=== PATIENT | male | born 1955 | race Caucasian/White ===

== ENCOUNTER 2022-03-19 13:34 | Emergency (ER) | payer MEDICARE, SELFPAY ==
[2022-03-19 13:39] VITALS: BP 161/90; PULSE 62; RESP 16; TEMP 36.8; O2SAT 96; BMI 24.3
[2022-03-19 13:48] VITALS: BP 157/91; PULSE 65; RESP 15; O2SAT 95
--- NOTE | 2022-03-19 13:50 | XR_ITS ---
WS: [id number] XR ankle RT min 3V* [id number] REASON FOR EXAM: ankle swelling FINDINGS: Transverse infra syndesmotic fracture of the distal right fibula with no significant displacement. The ankle joint spaces are relatively well-preserved. Old organized periosteal reaction along the medial aspect of the fibula at the syndesmotic level. XR/XR ankle RT min 3V* [id number] IMPRESSION: Acute fracture of the distal right fibula as above. Old syndesmotic injury.
--- NOTE | 2022-03-19 13:52 | ED_ITS ---
Documented by User: Brooke Dover MD 03/19/22 18:47 HPI - General Adult General: Chief complaint: Psychiatric Symptoms Stated complaint: HI Time Seen by Provider: 03/19/22 13:36 History of Present Illness: Patient is a 66-year-old male with no significant past medical presenting to the emergency room for concerns of homicidal ideation. Patient came in under court order for homicidal ideation. Patient was at a tire shop and cost over $4000 of damage. Law enforcement was called patient was brought to the emergency room. Patient verbalized statements of hurting law enforcement officers en route. Patient denies any suicidal ideation. Patient complains of right ankle swelling. Patient does not remember how long its been going on for. Patient denies any auditory or visual hallucination. Onset: earlier today Duration:ongoing Location:tire shop Severity:severe Associated symptoms: Deny chest pain, dyspnea, nausea, rash, palpitations or vomiting Review of Systems Const: Denies: fever(s) or chills Eyes: Denies: change in vision ENMT: Denies: mouth pain Card: Denies: chest pain or palpitations Resp: Denies: dyspnea or non-productive cough GI: Denies: abdominal pain, nausea, vomiting or diarrhea : Denies: dysuria Musc: Denies: extremity pain Skin/Breast: Denies: rash or new lesions Neuro: Denies: weakness in extremities Psych: Reports: homicidal ideation and other (Normal mood) Rolf/Lymph: Denies: easy bruising [facility] ED PFSH: Medical History No pertinent past medical history Social History Smoking and tobacco status: current every day smoker Alcohol intake: current Substance/Drug Use: never Physical Exam Const: COMMON NORMALS: alert HENMT: COMMON NORMALS: atraumatic HEAD & SCALP: atraumatic MOUTH: moist mucous membranes not abnormal Eye: COMMON NORMALS: EOMs intact bilaterally and conjunctivae normal CONJUNCTIVA: Yes conjunctivae normal Neck/C-Spine: COMMON NORMALS: full ROM and supple Resp: COMMON NORMALS: normal respiratory effort and clear to auscultation bilaterally AUSCULTATION: clear to auscultation bilaterally Cardio: COMMON NORMALS: regular rate RATE: regular rate GI: COMMON NORMALS: Soft to palpation and non-tender PALPATION: Yes Soft to palpation Extremity: COMMON NORMALS: full ROM Neuro: SENSORIUM/ORIENTATION: Yes alert MOTOR EXAM: No Abnormal motor strength present and Other motor observations present (no focal motor deficits) Psych: COMMON NORMALS: speech normal SPEECH: Yes normal speech MOOD & AFFECT: Yes euthymic mood Course Vital Signs: Vital signs: Vital Signs Temperature 98.8 F 03/20/22 15:38 Pulse Rate 59 L 03/20/22 15:38 Respiratory Rate 16 03/20/22 15:38 Blood Pressure 140/70 03/20/22 15:41 Pulse Oximetry 96 03/20/22 15:38 MDM - General Adult Medical Decision Making [66]yo patient w/ no known PMH presenting for statements of HI. HDS, exam within normal limit Thoughts are linear and organized, and the patient has no AH/VH, or SI. Patient is under court order for homocidal ideation Clinically the patient displays no overt toxidrome; they are well appearing, with low suspicion for toxic ingestion given history and exam. Symptoms unlikely 2/2 anemia, hypothyroidism, infection, or ICH. Workup: CBC, CMP, Lipase, salicylate/tylenol, serum ethanol, UDS, TSH/free T4, EKG, covid antigen, XR chest Lab findings: wnl X-ray showed no acute fibular fracture. Patient is placed in walking boot per Dr. Pressley who recommended orthopedic follow-up. I have given patient follow up with our case manager specialist to be seen by our outpatient by Dr. Pressley for R sided fibular fracture. Patient aware of a call from our case manager specialist to schedule for appointment(s) and verbalizes understanding of the importance of following up. [2:45pm] On reassessment, labs and workup wnl. Patient is hemodynamically stable with no acute medical complaints. Case discussed with psychiatric provider Dr. Bell at [facility] psych inpatient with recommendation for Xfer to nas psych Disposition: Xfer to nas psych Lab Data : 03/19/22 14:39 03/19/22 14:39 Radiology Impressions Ankle X-Ray 03/19/22 13:50 IMPRESSION: Acute fracture of the distal right fibula as above. Old syndesmotic injury. Chest X-Ray 03/19/22 14:26 IMPRESSION: No acute chest abnormality. 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 Laboratory Results WBC 4.6 10^3/uL (4.0-10.0) 03/19/22 14:39 RBC 3.99 10^6/uL (4.1-5.3) L 03/19/22 14:39 Hgb 12.5 g/dL (11.7-16.6) 03/19/22 14:39 Hct 37.2 % (42.0-52.0) L 03/19/22 14:39 MCV 93.2 fl (80-94) 03/19/22 14:39 MCH 31.3 pg (28.0-34.0) 03/19/22 14:39 MCHC 33.6 g/dL (30.0-36.0) 03/19/22 14:39 RDW 13.2 % (12.1-15.1) 03/19/22 14:39 Plt Count 222 10^3/cmm (130-400) 03/19/22 14:39 MPV 11.1 fL (7.4-10.4) H 03/19/22 14:39 Neut % (Auto) 65.4 % 03/19/22 14:39 Lymph % (Auto) 20.0 % 03/19/22 14:39 [place] % (Auto) 11.6 % 03/19/22 14:39 Eos % (Auto) 2.6 % 03/19/22 14:39 Baso % (Auto) 0.4 % 03/19/22 14:39 Neut # (Auto) 3.03 10^3/uL (1.8-7.7) 03/19/22 14:39 Lymph # (Auto) 0.9 10^3/uL (0.8-4.8) 03/19/22 14:39 [place] # (Auto) 0.5 10^3/uL (0.2-0.9) 03/19/22 14:39 Eos # (Auto) 0.1 10^3/uL (0.0-0.8) 03/19/22 14:39 Baso # (Auto) 0.0 10^3/uL (0.0-0.1) 03/19/22 14:39 Nucleated RBC % (auto) 0 % 03/19/22 14:39 Nucleated RBCs # 0.0 /100WBC 03/19/22 14:39 Sodium 135 mmol/L (136-145) L 03/19/22 14:39 Potassium 4.1 mmol/L (3.5-5.1) 03/19/22 14:39 Chloride 102 mmol/L (98-107) 03/19/22 14:39 Carbon Dioxide 21 mmol/L (22-29) L 03/19/22 14:39 Anion Gap 16.1 (5-19) 03/19/22 14:39 BUN 16 mg/dL (8-23) 03/19/22 14:39 Creatinine 0.5 mg/dL (0.7-1.2) L 03/19/22 14:39 GFR Calculation 166.4 mL/min (90-130) H 03/19/22 14:39 Glucose 87 mg/dL (65-115) 03/19/22 14:39 Calculated Osmolality 281 mOsm/kg (285-295) L 03/19/22 14:39 Calcium 8.8 mg/dL (8.5-10.5) 03/19/22 14:39 Total Bilirubin 0.3 mg/dL (0.15-1.2) 03/19/22 14:39 AST 48 U/L (0-40) H 03/19/22 14:39 ALT 36 U/L (0-41) 03/19/22 14:39 Alkaline Phosphatase 59 IU/L (40-130) 03/19/22 14:39 Total Protein 6.1 g/dL (6.6-8.7) L 03/19/22 14:39 Albumin 4.1 g/dL (3.5-5.2) 03/19/22 14:39 Globulin 2.0 g/dL (1.3-4.6) 03/19/22 14:39 Lipase 29 U/L (13-60) 03/19/22 14:39 Vitamin B12 641 pg/mL (232-1245) 03/19/22 18:40 Folate 8.3 ng/mL (4.5-32.2) 03/19/22 18:40 TSH 1.28 uIU/mL (0.27-4.20) 03/19/22 14:39 Free T4 1.30 ng/dL (0.82-1.77) 03/19/22 14:39 Salicylates < 0.3 mg/dL (3-10) L 03/19/22 14:39 Urine Opiates Screen Negative ng/mL (Negative) 03/19/22 14:28 Acetaminophen < 5.0 ug/mL (10-30) L 03/19/22 14:39 Ur Barbiturates Screen Negative ng/mL (Negative) 03/19/22 14:28 Ur Phencyclidine Scrn Negative ng/mL (Negative) 03/19/22 14:28 Ur Amphetamines Screen Negative ng/mL (Negative) 03/19/22 14:28 U Benzodiazepines Scrn Negative ng/mL (Negative) 03/19/22 14:28 Urine Cocaine Screen Negative ng/mL (Negative) 03/19/22 14:28 U Marijuana (THC) Screen Negative ng/mL (Negative) 03/19/22 14:28 Ethyl Alcohol < 10 mg/dL (0-10) 03/19/22 14:39 SARS-CoV-2 Ag (Rapid) Negative (Negative) 03/19/22 15:15 Imaging Data Other Imaging: Radiologist's impression: Launch?Image [address] [address] XRay Report Signed Patient: Kendrick Carson Unit #: [id number] : 1955 Age/Sex: 66 / M ADM Date: 03/19/22 Loc: ER Room/Bed: Attending Dr: Ordering Provider/Ordering MD: Boroke Dover MD Date of Service: 03/19/22 Procedure(s): XR ankle RT min 3V* [id number] Accession Number(s): [id number] Report Number: [id number] WS: [id number] XR ankle RT min 3V* [id number] REASON FOR EXAM: ankle swelling FINDINGS: Transverse infra syndesmotic fracture of the distal right fibula with no significant displacement. The ankle joint spaces are relatively well-preserved. Old organized periosteal reaction along the medial aspect of the fibula at the syndesmotic level. XR/XR ankle RT min 3V* [id number] IMPRESSION: Acute fracture of the distal right fibula as above. Old syndesmotic injury. ? ? Dictated By: Nish Umana Jr, MD Signed By: Nish Umana Jr, MD Signed Date/Time: 03/19/22 1411 DD/ 1407 Discharge Plan Discharge Patient Disposition: Transfer to ED Clinical Impression: Homicidal ideation, Ankle swelling, Closed fibular fracture Condition: Stable Prescriptions: No Action No Known Home Medications 0RF Coding Level of Care Code ED Worker'S Compensation Claims Examiner for Chg Fwd Exam Comprehensive Documented by User: Dawood Pickett DO 03/19/22 17:02 HPI - General Adult General: Chief complaint: Psychiatric Symptoms Stated complaint: HI Time Seen by Provider: 03/19/22 13:36 PFSH ED PFSH: Medical History No pertinent past medical history Social History Smoking and tobacco status: current every day smoker Alcohol intake: current Substance/Drug Use: never Course Vital Signs: Vital signs: Vital Signs Temperature 98.8 F 03/20/22 15:38 Pulse Rate 59 L 03/20/22 15:38 Respiratory Rate 16 03/20/22 15:38 Blood Pressure 140/70 03/20/22 15:41 Pulse Oximetry 96 03/20/22 15:38 MDM - General Adult Medical Decision Making [66]yo patient w/ no known PMH presenting for statements of HI. HDS, exam within normal limit Thoughts are linear and organized, and the patient has no AH/VH, or SI. Patient is under court order for homocidal ideation Clinically the patient displays no overt toxidrome; they are well appearing, with low suspicion for toxic ingestion given history and exam. Symptoms unlikely 2/2 anemia, hypothyroidism, infection, or ICH. Workup: CBC, CMP, Lipase, salicylate/tylenol, serum ethanol, UDS, TSH/free T4, EKG, covid antigen, XR chest Lab findings: wnl X-ray showed no acute fibular fracture. Patient is placed in walking boot per Dr. Pressley who recommended orthopedic follow-up. I have given patient follow up with our case manager specialist to be seen by our outpatient by Dr. Pressley for R sided fibular fracture. Patient aware of a call from our case manager specialist to schedule for appointment(s) and verbalizes understanding of the importance of following up. [2:45pm] On reassessment, labs and workup wnl. Patient is hemodynamically stable with no acute medical complaints. Case discussed with psychiatric provider Dr. Bell at [facility] psych inpatient with recommendation for Xfer to nas psych Disposition: Xfer to [facility] psych Chart inadvertently added to my list I did not participate in care Dr. Dover provided all of the care for this patient. Due to a [email or web address] EMR system and unable to remove my name from the chart and had to sign Lab Data : 03/19/22 14:39 03/19/22 14:39 Radiology Impressions Ankle X-Ray 03/19/22 13:50 IMPRESSION: Acute fracture of the distal right fibula as above. Old syndesmotic injury. Chest X-Ray 03/19/22 14:26 IMPRESSION: No acute chest abnormality. 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 Laboratory Results WBC 4.6 10^3/uL (4.0-10.0) 03/19/22 14:39 RBC 3.99 10^6/uL (4.1-5.3) L 03/19/22 14:39 Hgb 12.5 g/dL (11.7-16.6) 03/19/22 14:39 Hct 37.2 % (42.0-52.0) L 03/19/22 14:39 MCV 93.2 fl (80-94) 03/19/22 14:39 MCH 31.3 pg (28.0-34.0) 03/19/22 14:39 MCHC 33.6 g/dL (30.0-36.0) 03/19/22 14:39 RDW 13.2 % (12.1-15.1) 03/19/22 14:39 Plt Count 222 10^3/cmm (130-400) 03/19/22 14:39 MPV 11.1 fL (7.4-10.4) H 03/19/22 14:39 Neut % (Auto) 65.4 % 03/19/22 14:39 Lymph % (Auto) 20.0 % 03/19/22 14:39 [place] % (Auto) 11.6 % 03/19/22 14:39 Eos % (Auto) 2.6 % 03/19/22 14:39 Baso % (Auto) 0.4 % 03/19/22 14:39 Neut # (Auto) 3.03 10^3/uL (1.8-7.7) 03/19/22 14:39 Lymph # (Auto) 0.9 10^3/uL (0.8-4.8) 03/19/22 14:39 [place] # (Auto) 0.5 10^3/uL (0.2-0.9) 03/19/22 14:39 Eos # (Auto) 0.1 10^3/uL (0.0-0.8) 03/19/22 14:39 Baso # (Auto) 0.0 10^3/uL (0.0-0.1) 03/19/22 14:39 Nucleated RBC % (auto) 0 % 03/19/22 14:39 Nucleated RBCs # 0.0 /100WBC 03/19/22 14:39 Sodium 135 mmol/L (136-145) L 03/19/22 14:39 Potassium 4.1 mmol/L (3.5-5.1) 03/19/22 14:39 Chloride 102 mmol/L (98-107) 03/19/22 14:39 Carbon Dioxide 21 mmol/L (22-29) L 03/19/22 14:39 Anion Gap 16.1 (5-19) 03/19/22 14:39 BUN 16 mg/dL (8-23) 03/19/22 14:39 Creatinine 0.5 mg/dL (0.7-1.2) L 03/19/22 14:39 GFR Calculation 166.4 mL/min (90-130) H 03/19/22 14:39 Glucose 87 mg/dL (65-115) 03/19/22 14:39 Calculated Osmolality 281 mOsm/kg (285-295) L 03/19/22 14:39 Calcium 8.8 mg/dL (8.5-10.5) 03/19/22 14:39 Total Bilirubin 0.3 mg/dL (0.15-1.2) 03/19/22 14:39 AST 48 U/L (0-40) H 03/19/22 14:39 ALT 36 U/L (0-41) 03/19/22 14:39 Alkaline Phosphatase 59 IU/L (40-130) 03/19/22 14:39 Total Protein 6.1 g/dL (6.6-8.7) L 03/19/22 14:39 Albumin 4.1 g/dL (3.5-5.2) 03/19/22 14:39 Globulin 2.0 g/dL (1.3-4.6) 03/19/22 14:39 Lipase 29 U/L (13-60) 03/19/22 14:39 Vitamin B12 641 pg/mL (232-1245) 03/19/22 18:40 Folate 8.3 ng/mL (4.5-32.2) 03/19/22 18:40 TSH 1.28 uIU/mL (0.27-4.20) 03/19/22 14:39 Free T4 1.30 ng/dL (0.82-1.77) 03/19/22 14:39 Salicylates < 0.3 mg/dL (3-10) L 03/19/22 14:39 Urine Opiates Screen Negative ng/mL (Negative) 03/19/22 14:28 Acetaminophen < 5.0 ug/mL (10-30) L 03/19/22 14:39 Ur Barbiturates Screen Negative ng/mL (Negative) 03/19/22 14:28 Ur Phencyclidine Scrn Negative ng/mL (Negative) 03/19/22 14:28 Ur Amphetamines Screen Negative ng/mL (Negative) 03/19/22 14:28 U Benzodiazepines Scrn Negative ng/mL (Negative) 03/19/22 14:28 Urine Cocaine Screen Negative ng/mL (Negative) 03/19/22 14:28 U Marijuana (THC) Screen Negative ng/mL (Negative) 03/19/22 14:28 Ethyl Alcohol < 10 mg/dL (0-10) 03/19/22 14:39 SARS-CoV-2 Ag (Rapid) Negative (Negative) 03/19/22 15:15 Discharge Plan Discharge Patient Disposition: Transfer to ED Clinical Impression: Homicidal ideation, Ankle swelling, Closed fibular fracture Condition: Stable Prescriptions: No Action No Known Home Medications 0RF Coding Level of Care Code ED Worker'S Compensation Claims Examiner for Chg Fwd Exam Comprehensive Documented by User: Gideon King MD 03/20/22 22:13 HPI - General Adult General: Chief complaint: Psychiatric Symptoms Stated complaint: HI Time Seen by Provider: 03/19/22 13:36 PFS ED PFSH: Medical History No pertinent past medical history Social History Smoking and tobacco status: current every day smoker Alcohol intake: current Substance/Drug Use: never Course Vital Signs: Vital signs: Vital Signs Temperature 98.8 F 03/20/22 15:38 Pulse Rate 59 L 03/20/22 15:38 Respiratory Rate 16 03/20/22 15:38 Blood Pressure 140/70 03/20/22 15:41 Pulse Oximetry 96 03/20/22 15:38 MDM - General Adult Medical Decision Making [66]yo patient w/ no known PMH presenting for statements of HI. HDS, exam within normal limit Thoughts are linear and organized, and the patient has no AH/VH, or SI. Patient is under court order for homocidal ideation Clinically the patient displays no overt toxidrome; they are well appearing, with low suspicion for toxic ingestion given history and exam. Symptoms unlikely 2/2 anemia, hypothyroidism, infection, or ICH. Workup: CBC, CMP, Lipase, salicylate/tylenol, serum ethanol, UDS, TSH/free T4, EKG, covid antigen, XR chest Lab findings: wnl X-ray showed no acute fibular fracture. Patient is placed in walking boot per Dr. Pressley who recommended orthopedic follow-up. I have given patient follow up with our case manager specialist to be seen by our outpatient by Dr. Pressley for R sided fibular fracture. Patient aware of a call from our case manager specialist to schedule for appointment(s) and verbalizes understanding of the importance of following up. [2:45pm] On reassessment, labs and workup wnl. Patient is hemodynamically stable with no acute medical complaints. Case discussed with psychiatric provider Dr. Bell at [facility] psych inpatient with recommendation for Xfer to [facility] psych Disposition: Xfer to [facility] psych Chart inadvertently added to my list I did not participate in care Dr. Dover provided all of the care for this patient. Due to a [employer] EMR system and unable to remove my name from the chart and had to sign Patient presents here with court order hold for homicidal ideation he is excepted to [facility] medically cleared will transfer there. Lab Data : 03/19/22 14:39 03/19/22 14:39 Radiology Impressions Ankle X-Ray 03/19/22 13:50 IMPRESSION: Acute fracture of the distal right fibula as above. Old syndesmotic injury. Chest X-Ray 03/19/22 14:26
--- NOTE | 2022-03-19 14:26 | XR_ITS ---
WS: [id number] XR chest 1V portable [id number] REASON FOR EXAM: psych [facility] nowadays..... FINDINGS: The heart and mediastinum are within normal limits. There is calcified granulomatous disease in both hemithoraces. There are areas of increased lucency in the upper lung wetzel with some prominence of the interstitia l reticular markings in the lower lung weztel. The hemidiaphragms are flattened. No acute pulmonary parenchymal or pleural abnormality. Changes of degenerative spondylosis in the mid and lower thoracic spine with multiple biconcave compr ession deformities. XR/XR chest 1V portable [id number] IMPRESSION: No acute chest abnormality. 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
--- NOTE | 2022-03-19 14:26 | ECG_ITS ---
[facility] Test Date: 2022-03-19 Pat Name: Kendrick Carson Department: Room: Gender: Male Manager Agriculture: : 1955 Requested By: Brooke Dover Order Number: [id number] Stock MD: Richard Palacios M.D. Measurements Intervals [place] Rate: 51 P: 5 NV: 165 QRS: 55 QRSD: 82 T: 67 QT: 439 QTc: 407 Interpretive Statements SINUS BRADYCARDIA No previous ECG available for comparison Electronically Signed On 03-19-2022 20:28:38 CDT by Richard Palacios M.D. [id number]
[2022-03-19 14:57] VITALS: BP 157/91; PULSE 65; RESP 15; TEMP 36.8; O2SAT 95
[2022-03-19 14:58] LABS: Basophils % 0.4 %; Eosinophils # 0.1 10^3/uL (0.0-0.8); Eosinophils % 2.6 %; Hematocrit 37.2 % (42.0-52.0); Hemoglobin 12.5 g/dL (11.7-16.6); Lymphocytes # 0.9 10^3/uL (0.8-4.8); Mean Corpuscular HGB Conc 33.6 g/dL (30.0-36.0); Mean Corpuscular Hemoglobin 31.3 pg (28.0-34.0); Mean Corpuscular Volume 93.2 fl (80-94); Mean Platelet Volume 11.1 fL (7.4-10.4); Monocytes # 0.5 10^3/uL (0.2-0.9); Monocytes % 11.6 %; Neutrophils # 3.03 10^3/uL (1.8-7.7); Neutrophils % 65.4 %; Nucleated Red Blood Cells % 0 %; Platelet Count 222 10^3/cmm (130-400); Red Blood Count 3.99 10^6/uL (4.1-5.3); Red Cell Distribution Width 13.2 % (12.1-15.1); White Blood Count 4.6 10^3/uL (4.0-10.0)
[2022-03-19 15:24] LABS: Alanine Aminotransferase 36 U/L (0-41); Albumin Level 4.1 g/dL (3.5-5.2); Alkaline Phosphatase 59 IU/L (40-130); Aspartate Amino Transferase 48 U/L (0-40); Blood Urea Nitrogen 16 mg/dL (8-23); Calcium 8.8 mg/dL (8.5-10.5); Carbon Dioxide 21 mmol/L (22-29); Chloride 102 mmol/L (98-107); Glomerular Filtration Rate 166.4 mL/min (90-130); Glucose 87 mg/dL (65-115); Lipase 29 U/L (13-60); Osmolality Calculated 281 mOsm/kg (285-295); Sodium 135 mmol/L (136-145); Thyroid Stimulating Hormone 1.28 uIU/mL (0.27-4.20); Total Bilirubin 0.3 mg/dL (0.15-1.2); Total Protein 6.1 g/dL (6.6-8.7)
[2022-03-19 15:27] LABS: Acetaminophen < 5.0 ug/mL (10-30); Alcohol Level < 10 mg/dL (0-10); Anion Gap 16.1 (5-19); Creatinine Clr Calc Pharmacy 92.9589; Potassium 4.1 mmol/L (3.5-5.1); Salicylate < 0.3 mg/dL (3-10)
[2022-03-19 16:56] LABS: SARS Covid-2 Antigen Negative (Negative)
--- NOTE | 2022-03-19 17:34 | DCPLANNER ---
manager web was asked to find nas psych placement for patient. manager web called the following facilities: [facility] - patient is involuntary [facility] - faxed patients information at 5:30 [facility] - no beds [facility] - to [facility] - closed due to COVID [facility] - faxed information - no beds [facility] - need to call back [facility] - left voicemail at 3:15 [facility] - no beds [facility] - no beds [facility] - faxed information at 5:30
[2022-03-19 18:27] LABS: Amphetamines Screen Urine Negative (Negative); Barbiturates Screen Urine Negative (Negative); Benzodiazepines Screen Urine Negative (Negative); Cocaine Screen Urine Negative (Negative); Opiate Screen Urine Negative (Negative); PCP Screen Urine Negative (Negative); THC Screen Urine Negative (Negative)
[2022-03-19 19:39] LABS: Folate Level 8.3 ng/mL (4.5-32.2)
[2022-03-19 19:40] LABS: Vitamin B12 641 pg/mL (232-1245)
--- NOTE | 2022-03-19 22:22 | PC.NURSE ---
Dr Dover cancelled orders while waiting for security to arrive and assist with aggressive patient. Benadryl 50mg im, Haldol 5mg, and Ativan 1mg. Witness waste of medications by charge nurse- christian saravia rn.
[2022-03-20 06:00] VITALS: BP 169/78; PULSE 88; RESP 16; O2SAT 96
[2022-03-20 15:38] VITALS: PULSE 59; RESP 16; TEMP 37.1; O2SAT 96
[2022-03-20 15:41] VITALS: BP 140/70
[2022-03-20 22:35] VITALS: BP 168/87; PULSE 53; RESP 14; TEMP 36.8; O2SAT 95
--- NOTE | 2022-03-21 13:25 | DCPLANNER ---
Addendum entered by Orin Rodriguez 03/24/22 14:37: analytical manager was sent the following message from ortho regarding follow up appointment: Will contact pt after the 96 hours thank you Original Note: analytical manager had message to schedule follow up appointment for patient with ortho. analytical manager sent patients information to the front office staff at ortho. Patients information will be printed and reviewed. Clinic will call patient with appointment information.
[2022-03-22 15:53] LABS: RPR w(Moniotor) w/REFL Titer REACTIVE (NON-REACTIVE)
== END 2022-03-20 23:06 ==
PROVIDERS: Emergency Medicine; Emergency Provider Emergency Medicine
DX: R45.850 Homicidal ideations (principal); S82.831A Other fracture of upper and lower end of right fibula, initial encounter for closed fracture; F17.210 Nicotine dependence, cigarettes, uncomplicated; X58.XXXA Exposure to other specified factors, initial encounter; Z20.822 Contact with and (suspected) exposure to COVID-19
CPT/HCPCS: 36415; 71045; 73610; 80053; 80306; 80307; 82607; 82746; 83690; 84439; 84443; 85025; 86592; 87426; 93005; 99285